=== PATIENT | female | born 1970 | race Caucasian/White ===

== ENCOUNTER → 2021-03-12 | Outpatient (CLI) | payer MEDICARE ==
--- NOTE | 2021-03-12 16:39 | CARD ---
MR#: [id number] Date of Study: 03/12/2021 Ordering Physician: THADDEUS SAMAYOA, Referring Physician: THADDEUS SAMAYOA, Tech: Quiana Lawguerdasea, [facility] APPROVED REPORT EXAM: Two-dimensional and M-mode echocardiogram with Doppler and color Doppler. Other Information Quality : AverageHR: 92bpm INDICATION Superventricular Tachycardia RISK FACTORS Hypertension Hyperlipidemia Smoking 2D DIMENSIONS RVDd3.6 (2.9-3.5cm)Left Atrium(2D)3.1 (1.6-4.0cm) IVSd1.1 (0.7-1.1cm)Aortic Root(2D)3.3 (2.0-3.7cm) LVDd4.5 (3.9-5.9cm)LVOT Diameter2.1 (1.8-2.4cm) PWd1.1 (0.7-1.1cm)LVDs3.2 (2.5-4.0cm) FS (%) 28.7 %SV50.8 ml LVEF(%)55.5 (>50%) Aortic Valve AoV Peak Artem.142.5cm/sAoV VTI22.9cm AO Peak GR.8.1mmHgLVOT Peak Artem.118.6cm/s LVOT VTI 22.25cmAO Mean GR.4mmHg ANNY (VMAX)2.85xd8SXT (VTI)3.28cm2 Mitral Valve MV E Pkpjcxdn48.9cm/sMV DECEL BMQX390mi MV A Gncpsilq73.5cm/sMV E Mean Gr.1mmHg MV SYL53fnC/A Ratio0.7 MVA (PHT)4.01cm2 TDI E/Lateral E'6.5E/Medial E'6.6 Pulmonary Valve PV Peak Fcmyxdju96.2cm/sPV Peak Grad.3mmHg Tricuspid Valve TR P. Xfwulrea298df/sRAP GYADRQAU1acBp TR Peak Gr.86yrCjZKPA40hpUw Pulmonary Vein S1 Hlrsbxnc20.9cm/sD2 Idavetdk30.5cm/s PVa ysjbqszo19miyp LEFT VENTRICLE The left ventricle is normal size. There is mild concentric left ventricular hypertrophy. The left ve ntricular systolic function is normal. The Ejection Fraction is 55-60%. There is normal LV segmental wall motion. Transmitral Doppler flow pattern is Grade I-abnormal relaxation pattern. RIGHT VENTRICLE The right ventricle is normal size. There is normal right ventricular wall thickness. The right ventr icular systolic function is normal. ATRIA The left atrium size is normal. The right atrium size is normal. The interatrial septum is intact wit h no evidence for an atrial septal defect or patent foramen ovale as noted on 2-D or Doppler imaging. AORTIC VALVE The aortic valve is normal in structure and function. Doppler and Color Flow revealed no significant aortic regurgitation. There is no significant aortic valvular stenosis. Calculated aortic valve area is 3.0 cm2 with maximum pressure gradient of 11 mmHg and mean pressure gradient of 5 mmHg. MITRAL VALVE The mitral valve is normal in structure and function. There is no evidence of mitral valve prolapse. There is no mitral valve stenosis. Doppler and Color-flow revealed trace mitral regurgitation. TRICUSPID VALVE The tricuspid valve is normal in structure and function. Doppler and Color Flow revealed trace tricus pid regurgitation with an estimated PAP of 28 mmHg. There is no tricuspid valve stenosis. PULMONIC VALVE The pulmonic valve is not well visualized. Doppler and Color Flow revealed trace pulmonic valvular re gurgitation. GREAT VESSELS The aortic root is normal in size. The ascending aorta is normal in size. The IVC was not visualized. PERICARDIAL EFFUSION There is no evidence of significant pericardial effusion. Critical Notification Critical Value: No <Conclusion> The left ventricular systolic function is normal. The Ejection Fraction is 55-60%. There is normal LV segmental wall motion. Transmitral Doppler flow pattern is Grade I-abnormal relaxation pattern. Trace mitral regurgitation. Trace tricuspid regurgitation with an estimated PAP of 28 mmHg. There is no evidence of significant pericardial effusion. Signed by : Abundio Gasca, Electronically Approved : 03/12/2021 16:38:49
== END ==
LOC: ECHO 10:51
PROVIDERS: ATTEND Internal Medicine Cardiovascular Disease
DX: I51.7 Cardiomegaly (principal); I47.1 Supraventricular tachycardia
CPT/HCPCS: 93306

== ENCOUNTER 2021-04-17 09:15 | Emergency (ER) | payer MEDICARE ==
[~2021-04-17] VITALS: Ht 162.6 cm; Wt 132.4 kg
--- NOTE | 2021-04-17 10:35 | EKG ---
[facility] [address] [place] [address] Test Date: 2021-04-17 Test Time: 09:28:10 Pat Name: SULEMAN FARRELL Department: Room: Gender: F Header Setup Operator: : [id number] Requested By: FAUSTO ENRIQUEZ Order Number: [id number] Reading MD: Abundio Gasca Measurements Intervals [place] Rate: 88 P: 31 MA: 158 QRS: 6 QRSD: 96 T: 5 QT: 346 QTc: 422 Interpretive Statements SINUS RHYTHM NORMAL ECG RI6.01 No previous ECG available for comparison Electronically Signed On 04-17-2021 12:30:02 SPINNER CAP FRAME by Abundio Gasca
[2021-04-17 10:36] LABS: CALCIUM 8.7 mg/dL (8.5-10.1); CREATININE 0.7 mg/dL (0.6-1.0); GFR 88.9; POTASSIUM 4.1 mmol/L (3.5-5.1)
--- NOTE | 2021-04-17 10:36 | RAD ---
XR CHEST 1V 04/17/2021 10:05 AM INDICATION: Irregular heartbeat COMPARISON: None available TECHNIQUE: Portable frontal view of the chest is provided. FINDINGS: The cardiomediastinal silhouette is within normal limits. Lungs are clear. There are no significant pleural effusions. Mild pulmonary vascular congestion. No pneumothorax. No suspicious osseous abnormality. IMPRESSION: Mild pulmonary vascular congestion. Electronically signed by: Jacquelyn Rosario MD (04/17/2021 10:34 AM) [id number]
[2021-04-17 10:37] LABS: BASO % 0 % (0-3); EOS % 1 % (0-3); HEMATOCRIT 42.5 % (36.0-47.0); HEMOGLOBIN 14.5 g/dL (12.0-15.5); LYMPH # 1.5 x10^3/uL (1.0-4.8); LYMPH % 40 % (24-48); MEAN CORPUSCULAR HEMOGLOBIN 32 pg (25-35); MEAN CORPUSCULAR HGB CONC 34 g/dL (31-37); MEAN CORPUSCULAR VOLUME 93 fL (79-100); MONO # 0.4 x10^3/uL (0.0-1.1); MONO % 11 % (0-9); NEUT # 1.8 x10^3/uL (1.8-7.7); NEUT % 48 % (31-73); PLATELET COUNT 220 x10^3/uL (140-400); RED BLOOD COUNT 4.58 x10^6/uL (3.50-5.40); RED CELL DISTRIBUTION WIDTH 13.9 % (11.5-14.5); WHITE BLOOD COUNT 3.8 x10^3/uL (4.0-11.0)
[2021-04-17 10:42] LABS: ALBUMIN 3.1 g/dL (3.4-5.0); ALBUMIN/GLOBULIN RATIO 0.9 (1.0-1.7); TOTAL BILIRUBIN 0.1 mg/dL (0.2-1.0); TOTAL PROTEIN 6.6 g/dL (6.4-8.2)
--- NOTE | 2021-04-17 10:42 | PHYS DOC ---
Past Medical History Past Medical History: A-Fib Additional Past Medical Histor: RLS,TBI Past Surgical History: Cholecystectomy, Tubal ligation, Other Additional Past Surgical Histo: CLOT REMOVED FROM BRAIN,L ANKLE ORIF,SHUNT IN INNER EAR Smoking Status: Current Every Day Smoker Additional Information: 1 PPD Alcohol Use: None General Adult EDM: Chief Complaint: FLU SYMPTOM HPI: HPI: Patient is a 50 year old female with known COVID-19 positive result who presents with "skipped heartbeats." She denies chest pain, however feels like she has missing heartbeats. She was hospitalized in February for new onset A. fib, but has not had any episodes since that time. Patient was diagnosed with COVID-19 8 days ago. She reports her symptoms have improved, and she has only experiencing malaise and a lingering dry cough. She denies any continued shortness of breath, abdominal pain, nausea, vomiting, diarrhea, fever, chills. Review of Systems: Review of Systems: Constitutional: See HPI Eyes: Denies change in visual acuity or visual field deficits. HENT: Denies nasal congestion or sore throat. Respiratory: See HPI Cardiovascular: See HPI GI: See HPI : Denies dysuria and hematuria. Musculoskeletal: Denies back pain or joint pain. Integument: Denies rash or other skin lesions. Neurologic: Denies headache, focal weakness or sensory changes. Heart Score: C/O Chest Pain: No Allergies: Allergies: Allergies Coded Allergies Type Severity Reaction Last Updated Verified lisinopril Allergy Unknown COUGH 04/17/21 Yes Physical Exam: PE: Constitutional: Obese, well groomed, no acute distress, non-toxic appearance. HENT: Normocephalic, atraumatic, bilateral external ears normal, oropharynx moist, no oral exudates, no obvious deformities to external nose. Eyes: PERRLA, EOMI, conjunctiva normal, no discharge. Neck: Normal range of motion, no tenderness, supple, no stridor. Cardiovascular: Heart rate regular rhythm, no murmur. Lungs & Thorax: Bilateral breath sounds clear to auscultation. Abdomen: Bowel sounds normal, soft, no tenderness, no masses, no pulsatile masses. Skin: Warm, dry, no erythema, no rash. Back: No tenderness, no CVA tenderness. Extremities: No tenderness, no cyanosis, no clubbing, ROM intact, no edema. Neurologic: Alert and oriented x4, motor function grossly intact, sensory function grossly intact, no focal deficits noted. Current Patient Data: Labs: Laboratory Tests Test 04/17/21 09:54 White Blood Count 3.8 x10^3/uL (4.0-11.0) L Red Blood Count 4.58 x10^6/uL (3.50-5.40) Hemoglobin 14.5 g/dL (12.0-15.5) Hematocrit 42.5 % (36.0-47.0) Mean Corpuscular Volume 93 fL (79-100) Mean Corpuscular Hemoglobin 32 pg (25-35) Mean Corpuscular Hemoglobin Concent 34 g/dL (31-37) Red Cell Distribution Width 13.9 % (11.5-14.5) Platelet Count 220 x10^3/uL (140-400) Neutrophils (%) (Auto) 48 % (31-73) Lymphocytes (%) (Auto) 40 % (24-48) Monocytes (%) (Auto) 11 % (0-9) H Eosinophils (%) (Auto) 1 % (0-3) Basophils (%) (Auto) 0 % (0-3) Neutrophils # (Auto) 1.8 x10^3/uL (1.8-7.7) Lymphocytes # (Auto) 1.5 x10^3/uL (1.0-4.8) Monocytes # (Auto) 0.4 x10^3/uL (0.0-1.1) Eosinophils # (Auto) 0.0 x10^3/uL (0.0-0.7) Basophils # (Auto) 0.0 x10^3/uL (0.0-0.2) Sodium Level 140 mmol/L (136-145) Potassium Level 4.1 mmol/L (3.5-5.1) Chloride Level 104 mmol/L (98-107) Carbon Dioxide Level 26 mmol/L (21-32) Anion Gap 10 (6-14) Blood Urea Nitrogen 13 mg/dL (7-20) Creatinine 0.7 mg/dL (0.6-1.0) Estimated GFR (Cockcroft-Gault) 88.9 BUN/Creatinine Ratio 19 (6-20) Glucose Level 102 mg/dL (70-99) H Calcium Level 8.7 mg/dL (8.5-10.1) Total Bilirubin Pending Aspartate Amino Transferase (AST) Pending Alanine Aminotransferase (ALT) Pending Alkaline Phosphatase Pending Total Protein Pending Albumin Pending Albumin/Globulin Ratio Pending Laboratory Tests 04/17/21 09:54 Laboratory Tests 04/17/21 09:54 Vital Signs: Vital Signs Date Time Temp Pulse Resp B/P (MAP) Pulse Ox O2 Delivery O2 Flow Rate FiO2 04/17/21 09:20 78 18 151/98 (115) 96 Room Air EKG: EKG: EKG Interpreted by Dr. Mcgrath at 0928: Regular rate and rhythm 88 bpm with no ectopic beats. No concerning ST-T wave changes. Regular QR interval. Radiology/Procedures: Radiology/Procedures: PROCEDURE: PORTABLE CHEST 1V XR CHEST 1V 04/17/2021 10:05 AM INDICATION: Irregular heartbeat COMPARISON: None available TECHNIQUE: Portable frontal view of the chest is provided. FINDINGS: The cardiomediastinal silhouette is within normal limits. Lungs are clear. There are no significant pleural effusions. Mild pulmonary vascular congestion. No pneumothorax. No suspicious osseous abnormality. IMPRESSION: Mild pulmonary vascular congestion. Electronically signed by: Jacquelyn Rosario MD (04/17/2021 10:34 AM) [id number] Course & Med Decision Making: Course & Med Decision Making Pertinent Labs and Imaging studies reviewed. (See chart for details) Patient workup will include CXR, ekg, troponin, labs. Patient has not shown premature beats, skipped beats or other irregular rhythm while in the department. Oxygen saturation has remained above 94% while in the department as well. Workup unremarkable and reassuring. Patient will be provided with incentive spirometer, albuterol inhaler. I informed her she should get a pulse oximeter for home. She is given strict return precautions for oxygen saturation sustained below 90% or worsening symptoms. As she has had symptoms for less than 10 days and no oxygen requirement, I provided her with referral for monoclonal antibody infusion clinic. Patient understands and is agreeable to discharge plan. She was also instructed to keep a blood pressure log at home for follow-up with primary care regarding elevated blood pressure reading in the department. Dragon Disclaimer: Dragon Disclaimer: This electronic medical record was generated, in whole or in part, using a voice recognition dictation system. Departure Departure Impression: Primary Impression: COVID-19 virus infection Additional Impression: Elevated blood pressure reading Disposition: HOME / SELF CARE / HOMELESS Condition: STABLE Referrals: TESFAYE ROJO MD (PCP) Patient Instructions: Incentive Spirometer, Viral Syndrome Additional Instructions: You have been tested for or diagnosed with COVID-19. It is an infection caused by a new type of coronavirus. COVID-19 will cause cold-like or mild flu symptoms in most. It can cause more severe symptoms like problems breathing in some. There is no treatment for COVID-19. The body will clear the infection over time. Self-care will help to ease discomfort. Rest as needed. Healthy habits may help you feel better. Steps include: - Choose healthy foods including fruits and vegetables. Drink water throughout the day. - Get plenty of sleep each night. - If you smoke, try to quit. It may ease breathing. - Avoid alcohol. - Keep Others Healthy - The virus can spread to others. Droplets are released every time you sneeze or cough. The droplets can get into the mouth, nose, or eyes of people near you and lead to infection. To lower the chances of spreading COVID-19 to others: Stay at home until your doctor has said it is safe to leave. If you tested positive this will mean staying isolated until both of the following are true: - At least 7 days have passed since the start of illness. - You are free of fever for at least 72 hours without the use of medicine. During this time: - Avoid public areas, events, or transportation. Do not return to work or school until your doctor has said it is safe to do so. - Call ahead if you need to go to a medical center. Let them know you may have COVID-19. It will help them guide you where to go. They may also ask you to wear a facemask when you come to the office. - If you call for emergency medical services, let them know you may have COVID- 19. While at home: - Try to avoid close contact with others. Stay about 6 feet away. - If possible, spend most of your time in a separate room from others. - Use a face mask if you will be in close contact with others such as sharing a room or vehicle. - Have someone wipe down common surfaces in the home. Use household tire regrooving machine operator every day on areas like doorknobs, counters, or sinks. - Cough or sneeze into a tissue. Throw the tissue away right after use. If a tissue is not available, cough or sneeze into your elbow. - Wash your hands often. Wash them after sneezing or coughing. Use soap and water and wash for at least 20 seconds. Alcohol based hand wallpaper cleaner can be used if soap and water is not available. - Do not prepare food for others. Avoid sharing personal items like forks, spoons, or toothbrushes. - Avoid close contact with pets while you are sick. There is no evidence of the virus passing to pets. This is a safety step until more is known about this virus. Isolation can be frustrating. Social interaction can help. Keep in touch with friends and family through phone and tech options. You can still interact with others in your home, just keep a safe distance of about 6 feet. Follow-up: - Your doctors office will check in with you to see if there are any changes in your health. - You may be asked to keep track of symptoms to share with them. They will also let you know when you are clear to be in public again. Contact your doctor if your recovery is not going as you expect. Get emergency care if you have problems such as: - Trouble breathing - Nonstop chest pain or pressure - Changes in awareness, confusion, or problems waking - Lips or face have bluish color - Worsening of symptoms If you think you have an emergency, call for emergency medical services right away. As taken from [facility] Albuterol Sulfate (PROAIR HFA INHALER) 8.5 Gm Hfa.aer.ad 2 PUFF IH PRN Q4-6HRS for 21 Days, #1 INHALER 0 Refills Prov: FAUSTO ENRIQUEZ 04/17/21 FAUSTO ENRIQUEZ Apr 17, 2021 10:42
[2021-04-17 11:30] VITALS: BP 153/94
[2021-04-17] MEDS ORDERED: ALBU2.5V8 IH (11:38)
== END 2021-04-17 11:53 | disposition home or self-care (01) ==
LOC: ER 09:15
DX: U07.1 COVID-19 (principal); R03.0 Elevated blood-pressure reading, without diagnosis of hypertension; I48.91 Unspecified atrial fibrillation; F17.200 Nicotine dependence, unspecified, uncomplicated; Z87.820 Personal history of traumatic brain injury
CPT/HCPCS: 36415; 71045; 80053; 84484; 85025; 93005; 99285